=== PATIENT | male | born 1985 | race African-American/Black ===

== ENCOUNTER 2023-04-12 21:42 | Emergency (ER) | payer OTHER ==
[~2023-04-12] VITALS: Ht 172.7 cm; Wt 130.0 kg
[2023-04-12 21:49] VITALS: BP 152/100; PULSE 91; RESP 18; TEMP 98.4; O2SAT 96
== END 2023-04-13 01:27 | disposition home or self-care (01) ==
LOC: ER 21:42
DX: I83.91 Asymptomatic varicose veins of right lower extremity (principal); Z88.0 Allergy status to penicillin
CPT/HCPCS: 99283